=== PATIENT | female | born 1985 | race Caucasian/White ===

== ENCOUNTER → 2018-02-13 09:16 | Emergency (ER) | payer MEDICAID, OTHER ==
[2018-02-13 09:46] VITALS: BP 108/74
--- NOTE | 2018-02-13 10:32 | UC ---
UC General HPI - HPI Summary HPI Summary: pt hopes to get something for anxiety. she states that she has been going through a lot citing her father has CA. she states she would like something for stress. she was on something in the past through [facility] that worked well but can't recall what it was. she has a pcp in [place] but hasn't called to make a follow up appointment. she is no feeling suicidal or homicidal and is able to work and continue with her daily functions. - History of Current Complaint Chief Complaint: UCPsych Stated Complaint: PERSONAL Time Seen by Provider: 02/13/18 10:12 Hx Obtained From: Patient Onset/Duration: Gradual Onset Timing: Constant Pain Intensity: 0 Alleviating: nothing - Allergy/Home Medications Allergies/Adverse Reactions: Allergies Allergy/AdvReac Type Severity Reaction Status Date / Time morphine Allergy See Comment Verified 02/13/18 09:44 PMH/Surg Hx/FS Hx/Imm Hx Psychological History: Anxiety, Depression - Surgical History Surgical History: Yes Surgery Procedure, Year, and Place: . T&A. ear tubes. cholycystectomy - Family History Known Family History: Positive: Other - ca - Social History Occupation: Employed Full-time Lives: With Family Alcohol Use: Occasionally Substance Use Type: None Smoking Status (MU): Former Smoker Have You Smoked in the Last Year: No When Did the Patient Quit Smoking/Using Tobacco: age 18 - Immunization History Vaccination Up to Date: Yes Review of Systems Constitutional: Negative Skin: Negative Eyes: Negative ENT: Negative Respiratory: Negative Cardiovascular: Negative Gastrointestinal: Negative Genitourinary: Negative Motor: Negative Neurovascular: Negative Musculoskeletal: Negative Neurological: Negative Psychological: Anxious Is Patient Immunocompromised?: No All Other Systems Reviewed And Are Negative: Yes Physical Exam Triage Information Reviewed: Yes Appearance: Well-Appearing, Other: - Well kept Vital Signs: Initial Vital Signs Temp 98.4 F 02/13/18 09:40 Pulse 64 02/13/18 09:40 Resp 13 02/13/18 09:40 BP 108/74 02/13/18 09:40 Pulse Ox 100 02/13/18 09:40 Vital Signs Reviewed: Yes Eyes: Positive: Conjunctiva Clear ENT: Positive: Pharynx normal, TMs normal. Negative: Nasal congestion, Nasal drainage Neck: Positive: Supple, Nontender, No Lymphadenopathy Respiratory: Positive: Lungs clear, Normal breath sounds Cardiovascular: Positive: RRR, No Murmur Abdomen Description: Positive: Nontender, No Organomegaly, Soft Bowel Sounds: Positive: Present Musculoskeletal: Positive: ROM Intact Neurological: Positive: Alert Psychological: Positive: Normal Response To Family, Age Appropriate Behavior, Consolable Skin Exam: Normal Course/Dx - Course Course Of Treatment: Patient is adamant that she is not feeling suicidal or homicidal. She has good insight and judgment. She is able to go to work and perform her ADLs. She is receptive to following up with [facility] where she had received medication for anxiety in the past as well as calling her primary care provider today for follow-up as soon as possible. She also agrees to go to the ER for any change or worsening in her feelings. She also has good family support. - Differential Dx - Multi-Symptom Provider Diagnoses: Anxiety Discharge - Sign-Out/Discharge Documenting (check all that apply): Patient Departure All imaging exams completed and their final reports reviewed: No Studies - Discharge Plan Condition: Stable Disposition: HOME Prescriptions: hydrOXYzine pamoate [Vistaril] 50 mg PO Q6HR PRN #20 capsule PRN Reason: Anxiety Patient Education Materials: Anxiolysis in Adults (ED) Referrals: Marla Garvey MD [Primary Care Provider] - As Soon As Possible Additional Instructions: CALL [facility] TODAY FOR NEXT AVAILABLE APPOINTMENT AND TO DETERMINE THE NAME OF YOUR PRIOR ANXIETY MEDICATION. - Billing Disposition and Condition Condition: STABLE Disposition: Home
== END | disposition home or self-care (01) ==
LOC: UCCORT 09:16
DX: F41.9 Anxiety disorder, unspecified (principal); Z87.891 Personal history of nicotine dependence; Z88.5 Allergy status to narcotic agent
CPT/HCPCS: 99202; G0463

== ENCOUNTER 2018-05-26 17:47 | Emergency (ER) | payer OTHER ==
--- NOTE | 2018-05-26 18:05 | UC ---
Cardiac HPI - History of Current Complaint Chief Complaint: UCChestPain Stated Complaint: LEFT ARM/CHEST DISCOMFORT Time Seen by Provider: 05/26/18 17:58 Hx Obtained From: Patient Hx Last Menstrual Period: 05/19/18 Pain Intensity: 1 - Allergy/Home Medications Allergies/Adverse Reactions: Allergies Allergy/AdvReac Type Severity Reaction Status Date / Time morphine Allergy See Comment Verified 05/26/18 17:52 Home Medications: Home Medications Benzonatate CAP* [Tessalon 100 MG CAP*] 100 mg PO TID PRN 05/26/18 [History Confirmed 05/26/18] PMH/Surg Hx/FS Hx/Imm Hx Previously Healthy: Yes - Denies significant PMH Psychological History: Anxiety, Depression - Surgical History Surgical History: Yes Surgery Procedure, Year, and Place: . T&A. ear tubes. cholycystectomy - Family History Known Family History: Positive: Cardiac Disease - Grandfather, Other - cancer - Social History Alcohol Use: None Substance Use Type: None Smoking Status (MU): Former Smoker Have You Smoked in the Last Year: No When Did the Patient Quit Smoking/Using Tobacco: age 18 - Immunization History Vaccination Up to Date: Yes Review of Systems All Other Systems Reviewed And Are Negative: Yes Constitutional: Negative: Fever, Chills Skin: Negative: Rash ENT: Positive: Nasal Discharge, Sinus Congestion. Negative: Sinus Pain/ Tenderness Respiratory: Positive: Cough. Negative: Shortness Of Breath Cardiovascular: Positive: Chest Pain, Other - Left arm numbness. Negative: Palpitations Gastrointestinal: Positive: Nausea. Negative: Abdominal Pain, Vomiting, Diarrhea Genitourinary: Positive: Negative Musculoskeletal: Positive: Negative Neurological: Positive: Numbness Psychological: Positive: Anxious Is Patient Immunocompromised?: No Physical Exam - Summary Physical Exam Summary: GENERAL APPEARANCE: Well developed, well nourished, alert and cooperative, and appears to be in no acute distress. EYES: PERRL, EOM intact. Vision is grossly intact. EARS: External auditory canals and tympanic membranes clear, hearing grossly intact. NOSE: No nasal discharge. THROAT: Oral cavity and pharynx normal. No inflammation, swelling, exudate, or lesions. Teeth and gingiva in good general condition. NECK: Neck supple, non-tender without lymphadenopathy. CARDIAC: Normal S1 and S2. No S3, S4 or murmurs. Rhythm is regular. There is no peripheral edema, cyanosis or pallor. Extremities are warm and well perfused. Capillary refill is less than 2 seconds. LUNGS: Clear to auscultation without rales, rhonchi, wheezing or diminished breath sounds. ABDOMEN: Positive bowel sounds. Soft, nondistended, nontender. No guarding or rebound. No masses or hepatosplenomegally. MUSKULOSKELETAL: ROM intact to all extremities. No joint erythema or tenderness. Normal muscular development. Normal gait. NEUROLOGICAL: CN II-XII intact. Strength and sensation symmetric and intact throughout. Reflexes 2+ throughout. SKIN: Skin normal color, texture and turgor with no lesions or eruptions. Triage Information Reviewed: Yes Vital Signs: Initial Vital Signs Temp 98.1 F 05/26/18 17:50 Pulse 80 05/26/18 17:50 Resp 20 05/26/18 17:50 BP 134/88 05/26/18 17:50 Pulse Ox 100 05/26/18 17:50 Vital Signs Reviewed: Yes Diagnostics - EKG Cardiac Rate: NL - Rate 69 Cardiac Rhythm: Sinus: Normal Ectopy: None ST Segment: Normal Summary of EKG Findings: Normal sinus rhythm without ectopy, ST elevations, or T -wave changes. - Assessment/Plan Course Of Treatment: 32-year-old female presents with sudden onset of substernal chest pain, neck pain, and left arm numbness and heaviness. Associated with some nausea. Has some history of depression with anxiety and was recently diagnosed with an upper respiratory infection which she has been taking Tessalon Perles as needed for cough. Denies fever, chills, headache, visual disturbances, dizziness, vertigo, palpitations, shortness of breath, abdominal pain, vomiting, diarrhea, or diaphoresis. No personal or family history of cardiac problems. Afebrile. Mildly hypertensive otherwise vital signs within normal parameters. Exam was unremarkable. EKG showed normal sinus rhythm without ectopy, ST elevation, or T-wave changes. She was given aspirin 324 mg by mouth and an IV was established. Based on her symptoms I recommended to the patient that she be evaluated in the ER with transport via ambulance. She is agreeable to this plan of care. - Differential Diagnoses - Chest Pain Differential Diagnosis/HQI/PQRI: Acute OH, ACS, Chest Wall, GI Disease, Lower Respiratory Infection - Differential Diagnoses - Palpitations Differential Diagnosis/HQI/PQRI: Myocarditis, Panic Disorder, Pericarditis - Clinical Impression Provider Diagnosis: Acute chest pain Discharge - Sign-Out/Discharge Documenting (check all that apply): Patient Departure All imaging exams completed and their final reports reviewed: No Studies - Discharge Plan Condition: Stable Disposition: HOME Referrals: Marla Garvey MD [Primary Care Provider] - Additional Instructions: Your EKG was normal however based on your symptoms I cannot rule out that they may be cardiac related. I am recommending that you be evaluated in the ED this time with transport via ambulance. - Billing Disposition and Condition Condition: STABLE Disposition: Home
[2018-05-26] MEDS ORDERED: Aspirin 81 mg CHEW TAB* 81 MG TAB.CHEW PO ONE (18:11)
[2018-05-26 18:23] VITALS: BP 135/77
== END 2018-05-26 18:23 | disposition home or self-care (01) ==
LOC: UCCORT 17:47
DX: R07.9 Chest pain, unspecified (principal); Z88.5 Allergy status to narcotic agent; Z87.891 Personal history of nicotine dependence
CPT/HCPCS: 93005; 99213; G0463